=== PATIENT | female | born 1980 | race Caucasian/White ===

== ENCOUNTER 2018-02-08 22:43 | Emergency (ER) | payer BC ==
[~2018-02-08] VITALS: Ht 157.5 cm; Wt 84.8 kg
[~2018-02-08 22:43] MED LIST: AMOXICILLIN/CL875 MG PO; AUGMENTIN875TAB PO; BACTRIM DS1 TAB PO; BENZONATATE200 MG PO; CENTRUM OR; CIPRO500 MG PO; CIPROFLOXACN500 MG PO; CONCEPT DHA PO; DEPO-MEDROL40 MG/ML IM; DIFLUCAN150 MG PO; ERRIN0.35 MG PO; METRONIDAZOL500 MG PO; NUVARING VA; ONDANSETRON ODT8 MG PO; TESSALON PER100 MG PO; ULTRAM50 M1 PO; ZOFRAN ODT4 MG PO
[2018-02-08 23:24] LABS: URINE BILIRUBIN - DIPSTICK NEGATIVE (NEGATIVE); URINE BLOOD DIPSTICK LARGE (NEGATIVE); URINE COLOR YELLOW; URINE GLUCOSE - DIPSTICK NEGATIVE (NEGATIVE); URINE KETONE NEGATIVE (NEGATIVE); URINE NITRITE - DIPSTICK NEGATIVE (Negative); URINE PROTEIN - DIPSTICK 100 mg/dL (NEG-TRACE); URINE UROBILINOGEN - DIPSTICK 0.2 E.U./dL (0.2)
[2018-02-08 23:25] LABS: URINE CLARITY TURBID; URINE LEUK ESTERASE SMALL (NEGATIVE)
[2018-02-08 23:30] LABS: URINE AMORPH SEDIMENT MODERATE hpf (NONE-FEW); URINE BACTERIA FEW hpf; URINE SQUAMOUS EPITHELIAL CELL MODERATE EPI/hpf (0-FEW)
[2018-02-08] MEDS ORDERED: BACTRIM DS1 TAB PO (23:45)
[2018-02-08 23:59] VITALS: BP 129/90
== END 2018-02-09 00:01 | disposition home or self-care (01) | DRG 690 ==
LOC: ED 22:43
PROVIDERS: Family Medicine
DX: N30.00 Acute cystitis without hematuria (principal); B95.62 Methicillin resistant Staphylococcus aureus infection as the cause of diseases classified elsewhere

== ENCOUNTER 2019-08-22 | Emergency (ER) | payer BC ==
--- NOTE | 2019-09-01 12:14 | NUR ---
COVID results called to patient, encouraged Stay Home-Stay Safe measure, frequent handwashing when necessary trips/work made outside the home.
== END 2019-08-22 13:10 | disposition home or self-care (01) | DRG 153 ==
DX: J06.9 Acute upper respiratory infection, unspecified (principal); Z20.828 Contact with and (suspected) exposure to other viral communicable diseases

== ENCOUNTER 2020-04-24 06:34 | Emergency (ER) | payer BC ==
[~2020-04-24] VITALS: Ht 157.5 cm; Wt 86.4 kg
[2020-04-24] MEDS ORDERED: CYCLOBENZAPRINE10 MG PO (08:49)
[2020-04-24 09:05] LABS: HEMATOCRIT 42.6 % (37.0-47.0); HEMOGLOBIN 13.9 g/dl (12.0-16.0); IMMATURE GRANULOCYTES 0.5 % (0.0-5.0); MEAN CORPUSCULAR HGB CONC 32.6 g/dL CAL (32.0-36.0); NEUT# 8.89 thou/uL (2.00-7.15); RED BLOOD COUNT 4.63 mill/uL (4.20-5.60); RED CELL DISTRI WIDTH 11.4 % (11.5-15.5)
[2020-04-24 09:24] LABS: ALBUMIN 4.3 g/dL (3.2-5.0); ALKALINE PHOSPHATASE 80 u/l (38-126); ANION GAP 13 (6-22 (CALC)); BILIRUBIN, TOTAL 0.3 mg/dL (0.0-1.4); BUN 10 mg/dL (7-17); BUN/CREATININE RATIO 14 (12-20 (CALC)); CARBON DIOXIDE 27 mmol/l (22-30); CHLORIDE 101 mmol/l (95-108); CREATININE 0.7 mg/dL (0.5-1.0); GFR > 60 ML/MIN (>=60 (CALC)); GFR FOR AFR.AMER. > 60 ML/MIN (>=60 (CALC)); LIPASE 1754 u/l (23-300); POTASSIUM 4.1 mmol/l (3.5-5.1); SGOT/AST 25 u/l (14-36); SODIUM 136 mmol/l (137-146); TOTAL PROTEIN 7.6 g/dL (6.3-8.2)
[2020-04-24] MEDS ORDERED: PREDNISONE50 MG PO (11:23)
[2020-04-24] MEDS ORDERED: TRAMADOL HYDROC50 M1 PO ×2 (11:24→11:27)
[2020-04-24 12:24] VITALS: BP 110/70
== END 2020-04-24 12:35 | disposition home or self-care (01) | DRG 552 ==
LOC: ED 06:34
PROVIDERS: Family Medicine
DX: M54.5 Low back pain (principal); R74.8 Abnormal levels of other serum enzymes; M41.9 Scoliosis, unspecified
CPT/HCPCS: Q9967

== ENCOUNTER 2020-06-07 19:55 | Emergency (ER) | payer OTHER, BC ==
[~2020-06-07] VITALS: Ht 157.5 cm; Wt 87.0 kg
[~2020-06-07 19:55] MED LIST changes: +CYCLOBENZAPRINE10 MG PO; +PREDNISONE50 MG PO; +TRAMADOL HYDROC50 M1 PO
[2020-06-07] MEDS ORDERED: TIZANIDINE HCL4 M1 PO (22:23)
[2020-06-07 23:49] VITALS: BP 123/73
== END 2020-06-07 23:49 | disposition home or self-care (01) | DRG 552 ==
LOC: ED 19:55
DX: M62.830 Muscle spasm of back (principal); M54.2 Cervicalgia; R51.9 Headache, unspecified; M51.26 Other intervertebral disc displacement, lumbar region; M41.9 Scoliosis, unspecified; V49.50XA Passenger injured in collision with unspecified motor vehicles in traffic accident, initial encounter

== ENCOUNTER 2022-08-06 10:56 | Emergency (ER) | payer OTHER ==
[~2022-08-06] VITALS: Ht 157.5 cm; Wt 70.4 kg
[~2022-08-06 10:56] MED LIST changes: +TIZANIDINE HCL4 M1 PO
[2022-08-06 11:44] VITALS: BP 120/74
[2022-08-06 12:00] VITALS: BP 93/72
[2022-08-06 12:01] LABS: BASO% 0.8 % (0-3); EOS% 0.2 % (0-8); HEMATOCRIT 48.4 % (37.0-47.0); HEMOGLOBIN 15.8 g/dl (12.0-16.0); IMMATURE GRANULOCYTES 0.4 % (0.0-5.0); LYMPH% 22.2 % (15-41); MEAN CORPUSCULAR HGB 29.4 pG CALC (26.0-32.0); MEAN CORPUSCULAR HGB CONC 32.6 g/dL CAL (32.0-36.0); MONO% 10.2 % (2-13); NEUT# 3.44 thou/uL (2.00-7.15); NEUT% 66.2 % (42-76); RED BLOOD COUNT 5.38 mill/uL (4.20-5.60); RED CELL DISTRI WIDTH 11.5 % (11.5-15.5)
[2022-08-06 12:08] LABS: ALBUMIN 4.7 g/dL (3.2-5.0); ALKALINE PHOSPHATASE 90 u/l (38-126); ANION GAP 14 (6-22 (CALC)); BILIRUBIN, TOTAL 0.4 mg/dL (0.02-1.3); BUN 10 mg/dL (7-17); BUN/CREATININE RATIO 12 (12-20 (CALC)); CARBON DIOXIDE 27 mmol/l (22-30); CHLORIDE 99 mmol/l (95-108); CREATININE 0.8 mg/dL (0.5-1.0); GFR FOR AFR.AMER. > 60 ML/MIN (>=60 (CALC)); GFR OTHER RACES > 60 ML/MIN (>=60 (CALC)); LIPASE 139 u/l (23-300); POTASSIUM 3.3 mmol/l (3.5-5.1); SODIUM 137 mmol/l (137-146); TOTAL PROTEIN 8.4 g/dL (6.3-8.2)
[2022-08-06 12:09] LABS: SGOT/AST 48 u/l (14-36)
[2022-08-06] MEDS ORDERED: LEVSIN0.125 M1 PO (13:57)
[2022-08-06 14:01] VITALS: BP 93/72
== END 2022-08-06 14:23 | disposition home or self-care (01) | DRG 392 ==
LOC: ED 10:56
PROVIDERS: Family Medicine
DX: R10.9 Unspecified abdominal pain (principal)
CPT/HCPCS: Q9967